=== PATIENT | male | born 1965 | race Caucasian/White ===

== ENCOUNTER 2017-11-28 22:18 | Emergency (ER) | payer SELFPAY ==
[2017-11-29] MEDS ORDERED: ASPIRIN 81 MG TABLET, CHEWABLE PO ONE (00:03)
[2017-11-29 00:17] LABS: ABSOLUTE EOSINOPHILS # (AUTO) 0.1 10^3/uL (0.0-0.6); ABSOLUTE LYMPHOCYTES (AUTO) 1.2 10^3/uL (0.5-4.7); ABSOLUTE MONOCYTES (AUTO) 0.5 10^3/uL (0.1-1.4); ABSOLUTE NEUT (AUTO) 5.8 10^3/uL (1.7-8.2); BASOPHILS % (AUTO) 0.6 % (0-2); EOSINOPHILS % (AUTO) 1.6 % (0-6); HEMATOCRIT 46.7 % (37.9-51.0); HEMOGLOBIN 16.1 g/dL (13.5-17.0); MEAN CORPUSCULAR HEMOGLOBIN 30.1 pg (27.0-33.4); MEAN CORPUSCULAR HGB CONC 34.5 g/dL (32.0-36.0); MEAN CORPUSCULAR VOLUME 87 fl (80-97); MONOCYTES % (AUTO) 7.1 % (3-13); PLATELET COUNT 213 10^3/uL (150-450); RED BLOOD COUNT 5.36 10^6/uL (4.35-5.55); RED CELL DISTRIBUTION WIDTH 13.5 % (11.5-14.0); SEGMENTED NEUTROPHILS % (AUTO) 75.7 % (42-78); TOTAL CELLS COUNTED % (AUTO) 100 %; WHITE BLOOD COUNT 7.7 10^3/uL (4.0-10.5)
--- NOTE | 2017-11-29 00:22 | ER Document Report ---
ED Cardiac - General Mode of Arrival: Ambulatory Information source: Patient TRAVEL OUTSIDE OF THE [place] IN LAST 30 DAYS: No <ZAFAR PARRA - Last Filed: 11/29/17 00:32> <TISHA OCAMPO - Last Filed: 11/29/17 05:38> - General Chief Complaint: Palpitations Stated Complaint: HEART PALPATATIONS Time Seen by Provider: 11/29/17 00:03 Notes: 52-year-old male status post two-vessel CABG 4 weeks ago that presents to the emergency department tonight with complaints of a heart racing sensation, generalized weakness, nausea, and palpitations that began at 2030 this evening. Patient states he did not have any associated chest pain or shortness of breath with this. Patient states that he has skipped his 50 mg metoprolol doses the last 3 days as instructed. Patient states he was told if his pressure was lower than 110 systolic he should hold the metroprolol. Patient states shortly after his symptoms began he took his blood pressure which was 170/102 and he then took his metroprolol. Patient states shortly after taking his blood pressure medicine his symptoms seemed to resolve. Patient is on plavix and has been taking it as prescribed. (ZAFAR PARRA) - Related Data Allergies/Adverse Reactions: Penicillins Allergy (Verified 11/29/17 00:35) Sulfa (Sulfonamide Antibiotics) Allergy (Verified 11/29/17 00:36) Past Medical History - General Information source: Patient - Social History Smoking Status: Former Smoker Cigarette use (# per day): No Frequency of alcohol use: None Drug Abuse: None Lives with: Family Family History: Reviewed & Not Pertinent - Past Medical History Cardiac Medical History: Reports: Hx Coronary Artery Disease, Hx Hypercholesterolemia, Hx Hypertension Past Surgical History: Reports: Hx Coronary Artery Bypass Graft - x2 <ZAFAR PARRA - Last Filed: 11/29/17 00:32> Review of Systems - Review of Systems Constitutional: No symptoms reported EENT: No symptoms reported Cardiovascular: See HPI, Palpitations, Heart racing. denies: Chest pain, Dyspnea Respiratory: denies: Short of breath Gastrointestinal: No symptoms reported Genitourinary: No symptoms reported Male Genitourinary: No symptoms reported Musculoskeletal: No symptoms reported Skin: No symptoms reported Hematologic/Lymphatic: No symptoms reported Neurological/Psychological: No symptoms reported -: Yes All other systems reviewed and negative <ZAFAR PARRA - Last Filed: 11/29/17 00:32> Physical Exam <ZAFAR PARRA - Last Filed: 11/29/17 00:32> <TISHA OCAMPO - Last Filed: 11/29/17 05:38> - Vital signs Vitals: Temp Pulse Resp BP Pulse Ox 98.8 F 84 18 143/76 H 99 11/28/17 22:52 11/28/17 22:52 11/28/17 22:52 11/28/17 22:52 11/28/17 22:52 - Notes Notes: Physical Exam: General: Alert, appears well. HEENT: Normocephalic. Atraumatic. PERRL. Extraocular movements intact. Oropharynx clear. Neck: Supple. Non-tender. Respiratory: No respiratory distress. Clear and equal breath sounds bilaterally. Mild tenderness with palpation over midline scar. Cardiovascular: Regular rate and rhythm. Abdominal: Normal Inspection. Non-tender. No distension. Normal Bowel Sounds. Back: Non-tender. No deformity or step off. Extremities: Moves all four extremities. Upper extremities: Normal inspection. Normal ROM. Lower extremities: Normal inspection. No edema. Normal ROM. Neurological: Normal cognition. AAOx4. Normal speech. Psychological: Normal affect. Normal Mood. Skin: Warm. Dry. Normal color. Midline chest scar consistent with surgical history. (ZAFAR PARRA) Course - Laboratory Result Diagrams: 11/29/17 00:10 11/29/17 00:10 <ZAFAR PARRA - Last Filed: 11/29/17 00:32> - Laboratory Result Diagrams: 11/29/17 00:10 11/29/17 00:10 <TISHA OCAMPO - Last Filed: 11/29/17 05:38> - Re-evaluation Re-evalutation: 11/29/17 01:30 No further symptoms. Reginald work , EKG wnl 11/29/17 01:57 Spoke to [facility]. Cardiology paged. 11/29/17 04:37 Patient was discussed with cardiology. Recommends decreasing the dose of metoprolol if the patient is having a hard time tolerating it. Agrees that symptoms are most likely due to reflux tachycardia from beta-josé miguel withdrawal. No acute findings on EKG. Chest x-ray within normal limits. Blood work within normal limits. Troponin negative 2. Patient feels well and would like to go home. Return if any worsening or concerning symptoms. Grateful for care. (TISHA OCAMPO) - Vital Signs Vital signs: Temp Pulse Resp BP Pulse Ox 98.8 F 78 14 116/78 99 11/28/17 22:52 11/29/17 05:01 11/29/17 05:01 11/29/17 05:01 11/29/17 05:01 - Laboratory Laboratory results interpreted by me: 11/29/17 00:10 Total Bilirubin 1.9 H Creatine Kinase 49 L Discharge <ZAFAR PARRA - Last Filed: 11/29/17 00:32> <TISHA OCAMPO - Last Filed: 11/29/17 05:38> - Discharge Clinical Impression: Palpitations Condition: Stable Disposition: HOME, SELF-CARE Instructions: Palpitations (Irregular or Rapid Heartrate) (OM) Additional Instructions: Please continue taking metoprolol. Do not hold the dose. If you cannot tolerate 50 mg, you can take half of a pill daily (25mg). Please follow-up with your heart surgeon and risk control consultant as scheduled. Return sooner if you have any further concerns. Scribe Attestation: 11/29/17 05:38 I personally performed the services described in the documentation, reviewed and edited the documentation which was dictated to the scribe in my presence, and it accurately records my words and actions. (TISHA OCAMPO) Scribe Documentation - Scribe Written by Anita:: Anita Briones, 11/29/2017 0051 acting as scribe for :: Derrick <ZAFAR PARRA - Last Filed: 11/29/17 00:32>
[2017-11-29 00:25] LABS: INTERNATIONAL RATION (INR) 1.04; PROTHROMBIN TIME 14.1 SEC (11.4-15.4)
[2017-11-29 00:40] LABS: ALANINE AMINOTRANSFERASE 63 U/L (21-72); ALBUMIN 4.6 g/dL (3.5-5.0); ALKALINE PHOSPHATASE 87 U/L (38-126); ANION GAP 15 (5-19); ASPARTATE AMINO TRANSFERASE 54 U/L (17-59); BILIRUBIN,DIRECT 0.3 mg/dL (0.0-0.4); BILIRUBIN,TOTAL 1.9 mg/dL (0.2-1.3); BLOOD UREA NITROGEN 12 mg/dL (7-20); CALCIUM 9.6 mg/dL (8.4-10.2); CARBON DIOXIDE 27 mmol/L (22-30); CHLORIDE 103 mmol/L (98-107); CREATINE KINASE 49 U/L (55-170); GLUCOSE 106 mg/dL (75-110); POTASSIUM 4.1 mmol/L (3.6-5.0); SODIUM 144.5 mmol/L (137-145); TOTAL PROTEIN 7.4 g/dL (6.3-8.2)
[2017-11-29 00:54] LABS: CREATINE KINASE MB 0.47 ng/mL (<4.55)
[2017-11-29 00:58] LABS: TROPONIN I < 0.012 ng/mL
--- NOTE | 2017-11-29 02:01 | RADIOLOGY REPORT (SQ) ---
Chest single view on 11/29/2017 at 1:35 AM CLINICAL INDICATION: Palpitations COMPARISON: None FINDINGS: The patient is status post median sternotomy. Heart is upper limits normal for size. There is mild linear atelectasis or scarring in the left lower lung. The lungs are otherwise clear. Hilar and mediastinal contours are within normal limits. Pulmonary vascularity is within normal limits. IMPRESSION: No acute disease.
[2017-11-29 05:02] VITALS: BP 116/78
--- NOTE | 2017-11-29 07:09 | EKG REPORT ---
SEVERITY:- BORDERLINE ECG - SINUS RHYTHM PROBABLE LEFT ATRIAL ABNORMALITY BORDERLINE ST ELEVATION, INFERIOR LEADS : Confirmed by: Huy Kumar MD 29-Nov-2017 07:08:24
--- NOTE | 2017-11-29 07:10 | EKG REPORT ---
SEVERITY:- BORDERLINE ECG - SINUS RHYTHM BORDERLINE ST ELEVATION, INFERIOR LEADS AND ANTEROSEPTAL LEADS, CLINICAL CORRELATION NEEDED. : Confirmed by: Huy Kumar MD 29-Nov-2017 07:09:36
== END 2017-11-29 05:02 | disposition home or self-care (01) ==
LOC: ER 22:18
DX: R00.2 Palpitations (principal); R53.1 Weakness; R11.0 Nausea; I25.10 Atherosclerotic heart disease of native coronary artery without angina pectoris; I10 Essential (primary) hypertension; Z95.1 Presence of aortocoronary bypass graft; Z79.02 Long term (current) use of antithrombotics/antiplatelets; Z88.0 Allergy status to penicillin; Z88.2 Allergy status to sulfonamides
CPT/HCPCS: 36415; 71045; 80053; 82550; 82553; 84484; 85025; 85610; 93005; 93010; 99285